=== PATIENT | male | born 1980 | race Caucasian/White ===

== ENCOUNTER 2017-07-23 21:58 | Inpatient (IN) | payer OTHER ==
[2017-07-23 22:50] LABS: #Eosinphils 0.2 thou/uL (0.0-0.7); #Lymphocytes 1.1 thou/uL (1.20-3.40); #Monocytes 0.5 thou/uL (0.11-0.59); #Neutrophils 7.1 thou/uL (1.40-6.50); %Basophils 0.2 % (0.0-1.0); %Lymphocytes 12.5 % (21.0-51.0); %Monocytes 5.6 % (0.0-10.0); Hematocrit 45.3 % (42.0-52.0); Mean Platelet Volume 8.5 fL (7.4-10.4); Red Blood Cell (RBC) Count 4.73 mill/uL (4.70-6.10); White Blood Cell (WBC) Count 8.9 thou/uL (4.8-10.8)
--- NOTE | 2017-07-23 23:07 | RAD ---
AP VIEW OF THE CHEST: 07/23/17 INDICATION: History of cough and rash on the neck and abdomen. COMPARISON: None. FINDINGS: No air space consolidation, pleural effusion is evident. The cardiomediastinal silhouette is within normal limits. No acute osseous abnormality is evident. IMPRESSION: No acute cardiopulmonary abnormality. POS: [facility]
[2017-07-23] MEDS ORDERED: Acetaminophen 500 MG TAB ONE (23:14)
[2017-07-23] MEDS ORDERED: cefTRIAXone\\ROCEPHIN 1 GM VIAL ONE (23:14)
[2017-07-23 23:40] LABS: Bilirubin Negative (Negative); Blood, Urine Negative (Negative); Glucose, Urine (Dipstick) Negative (Negative); Ketone, Urine Negative (Negative); Nitrite Negative (Negative); Protein, Urine (Dipstick) Negative (Neg-Trace); Urobilinogen 0.2 mg/dL (0.2-1.0)
[2017-07-23 23:41] LABS: ALT (SGPT) 22 U/L (8-55); AST (SGOT) 33 U/L (5-34); Alkaline Phosphatase 71 U/L (40-150); Anion Gap 18 mmol/L (10-20); BUN (Urea Nitrogen) 14 mg/dL (8.9-20.6); Bilirubin, Total 0.5 mg/dL (0.2-1.2); Calc. Creatinine Clearance 0 mL/min (70-130); Calcium 9.3 mg/dL (7.8-10.44); Carbon Dioxide 22 mmol/L (22-29); Chloride 103 mmol/L (98-107); Estimated GFR-MDRD 90; Globulin 3.4 g/dL (2.4-3.5); Magnesium 2.5 mg/dL (1.6-2.6); Protein, Total 7.7 g/dL (6.0-8.3)
[2017-07-23 23:41] LABS: Lactic Acid - Sepsis 3.2 mmol/L (0.5-2.2)
[2017-07-24] MEDS ORDERED: diphenhydrAMINE HCl 25 MG CAP PO PRN (09:55)
[2017-07-24] MEDS ORDERED: Enoxaparin Sodium 40 MG/0.4 ML SYRINGE SC SCH ×2 (09:55→10:30)
[2017-07-24] MEDS ORDERED: guaiFENesin ER 600 MG TAB PO SCH ×2 (09:55→10:30)
[2017-07-24] MEDS ORDERED: Ondansetron ODT 4 MG TAB PO PRN (09:55)
[2017-07-24] MEDS: Fluticasone Propionate Nasal Spray 16 gm Bottle NASAL SCH (10:00)
[2017-07-24 10:13] VITALS: BMI 29.8
[2017-07-24] MEDS ORDERED: Loratadine 10 MG TAB PO SCH (10:15)
[2017-07-24] MEDS: Sodium Chloride 0.9% 1,000 ML IV SCH ×2 (11:06→20:09)
[2017-07-24] MEDS: Acetaminophen 325 MG TAB PO PRN ×3 (12:19→21:53)
[2017-07-24] MEDS: Vancomycin HCl 1.5 GM in Sodium Chloride 0.9% 250 ML 300 ML IVPB SCH ×2 (12:19→23:28)
[2017-07-24 12:49] LABS: Amphetamine Not Detected (NotDetected); Methadone Not Detected (NotDetected); Methamphetamine Not Detected (NotDetected)
--- NOTE | 2017-07-24 14:26 | HP-2 ---
CODE STATUS: FULL. ATTENDING: Dr. Melendrez. RESIDENT: Lázaro Beverly M.D. HISTORIAN: The patient. CHIEF COMPLAINT: Fever and a rash. HISTORY OF PRESENT ILLNESS: Mr. Figueroa Rodriguez is a 37-year-old male with no prior past medical histor y who presents with 2-day history of rash on neck and abdomen for the last 2 days with associated fe jose and chills. He has been an inmate at the [facility] for 1 week. He states his fever was as high as 1 01.6. He states that he has also had nasal congestion, sore throat for the last 3 days. He admits to IV drug use in the past, stating the last time he used IV drugs was 11 months ago. He also admit s to a recent meth use 1 week ago. He prefers to smoke or eat the meth he says. He denies chest pa in, palpitations, edema, shortness of breath. PAST MEDICAL HISTORY: Depression. PAST SURGICAL HISTORY: Right knee surgery, testicular torsion. ALLERGIES: No known drug allergies. MEDICATIONS: None. FAMILY HISTORY: Noncontributory. SOCIAL HISTORY: Denies tobacco or alcohol use. Admits to using meth 1 week ago. REVIEW OF SYSTEMS: General: Positive for fever, night sweats and fatigue. Denies weight change, a ppetite or sleep changes. Eyes: Denies vision changes or eye pain. ENT: Positive for nasal conge stion, rhinorrhea, or sore throat. Respiratory: Positive for cough, congestion. Denies shortness of breath or exercise intolerance. Cardiovascular: Denies chest pain, palpitations, edema, PND, or thopnea. Gastrointestinal: Positive for nausea. Denies vomiting, diarrhea, constipation, abdomina l pain, GI bleeding. Genitourinary: Negative for incontinence, dysuria, polyuria, discharge. Skin : Positive for rash. Denies lesions, jaundice, itching. Musculoskeletal: Denies pain, tenderness, stiffness, swelling or arthritis. Neurologic: Denies we akness, numbness, syncope, seizures. Psychiatric: Denies anxiety or depression. PHYSICAL EXAMINATION: VITAL SIGNS: Blood pressure 116/75, pulse 76, respiratory rate 16, T-max 98.5, pulse ox 99 on room air. GENERAL: The patient is alert and oriented x4, no acute distress, obese, and appropriately interact [place]. HEENT: Eyes: Pupils equal, round, reactive to light and accommodation. Extraocular muscles intact . Conjunctivae within normal limits. Tympanic membranes pearly king without bulging or erythema. Nasal mucosa and oropharynx within normal limits. NECK: Supple, without lymphadenopathy or thyromegaly. CARDIOVASCULAR: Regular rate and rhythm. No murmurs or gallops. Radial and pedal pulses equal anne aterally. RESPIRATORY: Normal effort, no retractions. Lungs clear to auscultation bilaterally. SKIN: Warm and dry without cyanosis; however, there is erythema to the left neck and lower abdomen. ABDOMEN: Soft, nontender. Bowel sounds normoactive x4. No masses or distention. EXTREMITIES: No clubbing, cyanosis or edema. MUSCULOSKELETAL: Structure and tone within normal limits. Muscular strength 5/5 and full range of motion. NEUROLOGICAL: No focal deficits. Sensation within normal limits. Cranial nerves II through XII gr ossly intact. PSYCHIATRIC: Appropriate. LABORATORY DATA AND X-RAY FINDINGS: White blood cell count 8.9, hemoglobin 15.3, hematocrit 45.3, p latelets 245, MCV 95.5. Sodium 138, potassium 5.0, chloride 102, bicarbonate 22, BUN 14, creatinine 0.94, glucose 89, calcium 9.3, total protein 7.7, albumin 4.3, total bilirubin 0.5, AST 33, ALT 22, alkaline phosphatase 71. Influenza A and B negative. Magnesium 2.5. A strep swab is negative. R apid Strep screen negative. Lactic acid 3.2. UA is negative. Chest x-ray, no acute cardiopulmonar y abnormalities. ASSESSMENT AND PLAN: A 37-year-old male with past medical history of IV drug use who presents with fever, rash and upper respiratory symptoms. 1. Systemic inflammatory response syndrome, with unknown source and history of drug use and incarce ration. Check urine and blood cultures. Repeat CBC, BMP, lactic acid. Check UDS, RPR, HIV and hep atitis C. Start IV vancomycin and Rocephin for empiric coverage. Possible that the patient has a v iral URI contributing to symptoms with a viral exanthem explaining the rash. 2. Rash, possibly viral exanthem. Patient states it is a little bit itchy, p.r.n. Benadryl for the itchiness. 3. Upper respiratory infection, viral. Mucinex, Tylenol and Fluticasone. 4. Polysubstance abuse. Check UDS. Advised cessation. 5. Diet: Regular. 6. Deep venous thrombosis prophylaxis. Lovenox. 7. Activity: Ad hue. 8. Code status: full. Disposition and length of hospital stay: 1-2 days. Symptomatic medications will be provided. History and physical exam as well as management discussed with Dr. Melendrez.
[2017-07-24] MEDS ORDERED: cefTRIAXone\\ROCEPHIN 1 GM in Sodium Chloride 0.9% 100 ML IVPB SCH (20:00)
[2017-07-24] MEDS: guaiFENesin ER 600 MG TAB PO SCH (20:10)
--- NOTE | 2017-07-24 23:42 | ADD-HP ---
ADDENDUM: Please see the history and physical done by the resident for which I concur. HISTORY OF PRESENT ILLNESS: This 37-year-old incarcerated gentleman does have history of IV drug ab use in the past who came in with high fever and high lactic acid level and so the ER physician was w orried about the possibility of bacterial endocarditis, so is being admitted and has already been st arted on vancomycin and Rocephin for that. Little bit of rash, respiratory symptoms, stuffy nose, d rainage, postnasal drip, sore throat. Past medical history, social history, surgical history all per the resident's history and physical f or which I concur. PHYSICAL EXAMINATION: GENERAL: No apparent distress. VITAL SIGNS: Currently, afebrile. Vital signs are stable. ENT: Throat, slightly pink. Nares, thin congestion. NECK: No lymphadenopathy or thyromegaly. CHEST: Clear. CARDIAC: Regular rate and rhythm without any murmurs that I can hear. ABDOMEN: Soft, nontender, nondistended. EXTREMITIES: Show no edema. SKIN: Rash looks more like a viral exanthem of his trunk. Strep test and flu tests were negative. White count not particularly elevated. ASSESSMENT: Likely viral exanthem and viral upper respiratory tract infection but with history of I V drug abuse and high lactic acid level. PLAN: To admit, go ahead and keep him on the vancomycin and Rocephin until we get full cultures garrick k in 48 hours, then will likely discharge.
[2017-07-25] MEDS: Sodium Chloride 0.9% 1,000 ML IV SCH ×3 (01:30→18:09)
[2017-07-25] MEDS: Acetaminophen 325 MG TAB PO PRN (05:35)
[2017-07-25 05:47] LABS: #Basophils 0.1 thou/uL (0.0-0.2); #Eosinphils 0.3 thou/uL (0.0-0.7); #Lymphocytes 1.6 thou/uL (1.20-3.40); #Monocytes 0.7 thou/uL (0.11-0.59); #Neutrophils 5.3 thou/uL (1.40-6.50); %Basophils 0.7 % (0.0-1.0); %Eosinophils 3.2 % (0.0-10.0); %Lymphocytes 20.5 % (21.0-51.0); %Monocytes 8.9 % (0.0-10.0); Hematocrit 44.3 % (42.0-52.0); Red Blood Cell (RBC) Count 4.56 mill/uL (4.70-6.10); White Blood Cell (WBC) Count 7.9 thou/uL (4.8-10.8)
[2017-07-25 05:58] LABS: Anion Gap 12 mmol/L (10-20); BUN (Urea Nitrogen) 10 mg/dL (8.9-20.6); Calc. Creatinine Clearance 150 mL/min (70-130); Calcium 8.9 mg/dL (7.8-10.44); Carbon Dioxide 25 mmol/L (22-29); Chloride 105 mmol/L (98-107); Estimated GFR-MDRD Greater than 90
--- NOTE | 2017-07-25 06:57 | PDOC.FM ---
- Subjective Subjective: Patient had a fever overnight. He reports that he did not sleep well and he did not want to talk to me this morning. His rash is unchanged - Objective MAR Reviewed: Yes Vital Signs & Weight: Vital Signs (12 hours) Temp Pulse Resp BP Pulse Ox 07/25/17 04:00 99.4 F 77 20 122/66 96 07/25/17 00:00 100.2 F H 81 20 132/66 97 07/24/17 20:00 100.5 F H 94 20 130/63 97 Weight Weight 97.658 kg I&O: 07/23/17 07/24/17 07/25/17 06:59 06:59 06:59 Intake Total 4420 Output Total 3450 Balance 970 Result Diagrams: 07/25/17 05:05 07/25/17 05:05 Phys Exam - Physical Examination Constitutional: NAD HEENT: moist MMs, oral pharynx no lesions Respiratory: no wheezing, no rales, no rhonchi, clear to auscultation bilateral Cardiovascular: RRR, no significant murmur, no rub, gallop Gastrointestinal: soft, non-tender, no distention Musculoskeletal: no edema, pulses present Neurological: non-focal, moves all 4 limbs Psychiatric: normal affect, A&O x 3 Deviation from normal: erythematous rash on L side of abdomen, L side of neck, and L upper arm Dx/Plan (1) Suspected endocarditis Code(s): Z03.89 - ENCNTR FOR OBS FOR OTH SUSPECTED DISEASES AND COND RULED OUT Status: Acute Plan: This is a 37 year old male who presented with a rash and SIRS criteria as well as elevated lactic acid and has a history of IV drug use. Will rule out endocarditis -Blood cultures x2 -Echo -Vanc day 2 -Rocephin day 2 (2) Sepsis Code(s): A41.9 - SEPSIS, UNSPECIFIED ORGANISM Status: Acute Qualifiers: Sepsis type: sepsis due to unspecified organism Qualified Code(s): A41.9 - Sepsis, unspecified organism Plan: Patient met SIRS criteria and had an elevated lactic acid on admission, but the source is still unknown This is likely viral in etiology, but as the patient has a history of IV drug use and lives in prison we will wait until blood cultures are negative at 48 hours. -Blood cultures -Urine cultures -Vanc day 2 -Rocephin day 2 (3) Elevated lactic acid level Code(s): R79.89 - OTHER SPECIFIED ABNORMAL FINDINGS OF BLOOD CHEMISTRY Status : Resolved Plan: Elevated lactic acid in the setting of SIRS criteria, went down on repeat s/p fluid resuscitation (4) History of intravenous drug use in remission Code(s): Z87.898 - PERSONAL HISTORY OF OTHER SPECIFIED CONDITIONS Status: Acute Plan: Patient admits to a history of IV drug use in the past 12 months. He reports that he always uses clean needles. Will rule out bacteremia with negative blood cultures at 48 hours -Blood cultures
[2017-07-25] MEDS: Fluticasone Propionate Nasal Spray 16 gm Bottle NASAL SCH (08:25)
[2017-07-25] MEDS: guaiFENesin ER 600 MG TAB PO SCH (08:25)
[2017-07-25] MEDS ORDERED: Enoxaparin Sodium 40 MG/0.4 ML SYRINGE SC SCH (09:00)
[2017-07-25] MEDS ORDERED: Loratadine 10 MG TAB PO SCH (09:00)
[2017-07-25 11:49] LABS: Vancomycin, Trough 9.5 ug/mL
[2017-07-25] MEDS ORDERED: Vancomycin HCl 1.75 GM in Sodium Chloride 0.9% 500 ML IVPB SCH (12:00)
[2017-07-25] MEDS: Vancomycin HCl 1.5 GM in Sodium Chloride 0.9% 250 ML 300 ML IVPB SCH (12:25)
[2017-07-25 16:57] VITALS: BP 128/71; TEMP 99
--- NOTE | 2017-07-25 17:03 | ADD-PRG ---
ADDENDUM DATE OF SERVICE: 07/25/2017 Please see the note from Dr. Maldonado for which I concur. SUBJECTIVE: The patient is seen, evaluated and examined and discussed with the residents by bedside . Basically, no major change overnight on him. He is still having some fever, rashes. The lactic acid level came back normal. White count has not been elevated at all on him. He basically is here for a 48-hour blood culture to rule out something like sepsis or bacterial endocarditis, because of history of IV drug abuse with fever and rash, although everything really seems more like a viral ex anthem, but because we have kind of committed to this possibility, we are going to go and finish the full 48-hour rule out, which should be done tomorrow. PHYSICAL EXAMINATION: GENERAL: Exam has really unchanged. HEENT: Throat, slightly red, but no exudate. CHEST: Clear. CARDIOVASCULAR: Regular rate and rhythm. SKIN: Does have a fine maculopapular rash throughout the trunk and extremites. PLAN: Continue vancomycin and Rocephin and as long as the 48 hour culture is negative overnight, he will be able to go home tomorrow.
--- NOTE | 2017-07-26 13:14 | DIS-2 ---
DATE OF ADMISSION: 07/24/2017 DATE OF DISCHARGE: 07/25/2017 RESIDENT: Ruby Maldonado M.D. ADMITTING ATTENDING: Dr. Nathan Melendrez DISCHARGE ATTENDING: Dr. Nathan Melendrez CONSULTS: None. PROCEDURES: None. PRIMARY DIAGNOSIS: 1. Sepsis, secondary to viral upper respiratory infection. 2. History of IV drug use. 3. Viral exanthem. 4. Elevated lactic acid. DISCHARGE MEDICATIONS: 1. Claritin 10 mg p.o. daily. 2. Benadryl 25 mg p.o. q.6 h. p.r.n. itching. DISCONTINUED MEDICATIONS: None. HOSPITAL COURSE: This is a 37-year-old man who presented from detention with a history of IV drug use, c omplaining of a rash on his neck, abdomen, and left upper arm that has been going on for about 2 day s. He also has been having fever as well as a sore throat and nasal congestion. The patient admits to having used IV drugs about 11 months ago, admits to using meth about a week ago. The patient re ported that the rash was itchy, but had gotten slightly better. The patient's lab work was all with in normal limits except the lactic acid of 3.2, it later went down to 2 after fluid resuscitation. The patient had group A strep culture that was negative and influenza negative. His urine culture a nd blood cultures were no growth at 48 hours. He had a chest x-ray that showed no acute cardiopulmo nary abnormality. We did an echo that showed ejection fraction 50-55%, grade I diastolic dysfunctio n, mild mitral regurgitation, mild tricuspid regurgitation. The patient symptomatically improved an d temperatures had improved. This was likely viral in nature. We treated him with 48 hours of IV v ancomycin and Rocephin, but as blood cultures came back negative at 48 hours, likely viral and so we discharged the patient. DISPOSITION: Stable. DISCHARGE INSTRUCTIONS: 1. Location: Group Home. 2. Diet: Regular. 3. Activity: No restrictions. 4. Followup: Follow up with PCP within 5-7 days.
== END 2017-07-25 19:41 | DRG 872 ==
LOC: ERS 21:58 → ERHOLD 07-24 02:35 → 2NO 07-24 09:55
PROVIDERS: ADMIT Family Medicine; ATTEND Family Medicine
DX: A41.89 Other specified sepsis (principal); E87.2 Acidosis; J06.9 Acute upper respiratory infection, unspecified; F19.10 Other psychoactive substance abuse, uncomplicated; I08.1 Rheumatic disorders of both mitral and tricuspid valves; R21 Rash and other nonspecific skin eruption; R65.20 Severe sepsis without septic shock
CPT/HCPCS: 36415; 71010; 80048; 80053; 80202; 80306; 81003; 83605; 83735; 85025; 86780; 86803; 87040; 87081; 87086; 87389; 87430; 93306; 96360; 96361; 96365; 96367; J0696; J1650; J3370; J7050

== ENCOUNTER 2018-12-26 16:39 | Emergency (ER) | payer OTHER ==
[2018-12-26] MEDS ORDERED: Lidocaine 1% w/Epinephrine 1:100K 20 ML VIAL ONE (16:45)
[2018-12-26] MEDS ORDERED: Adacel (T-DAP) 0.5 ML SYRINGE ONE (17:07)
[2018-12-26] MEDS ORDERED: Bacitracin Zinc 1 Packet ONE (17:49)
--- NOTE | 2018-12-26 17:52 | RAD ---
LEFT KNEE FOUR VIEWS: History: Laceration to knee. FINDINGS: There are no signs of fracture, dislocation, or soft tissue swelling. No joint effusion is identified . No radiopaque foreign bodies. IMPRESSION: No acute changes. POS: [facility]
== END 2018-12-26 18:02 | disposition home or self-care (01) ==
LOC: SCSER 16:39
DX: S81.012A Laceration without foreign body, left knee, initial encounter (principal); F32.9 Major depressive disorder, single episode, unspecified; Z23 Encounter for immunization; Z79.899 Other long term (current) drug therapy; W29.3XXA Contact with powered garden and outdoor hand tools and machinery, initial encounter
CPT/HCPCS: 12002; 90471; 90715; J2001

== ENCOUNTER 2020-05-06 14:44 | Emergency (ER) | payer OTHER, SELFPAY ==
[2020-05-06] MEDS ORDERED: Ketorolac Tromethamine 30 MG/ML VIAL ONE (15:59)
[2020-05-06 16:22] LABS: ALT (SGPT) 12 U/L (8-55); AST (SGOT) 27 U/L (5-34); Albumin 3.8 g/dL (3.5-5.0); Alkaline Phosphatase 40 U/L (40-110); Anion Gap 16 mmol/L (10-20); BUN (Urea Nitrogen) 13 mg/dL (8.9-20.6); Bilirubin, Total 0.5 mg/dL (0.2-1.2); Calc. Creatinine Clearance 0 mL/min (70-130); Calcium 8.3 mg/dL (7.8-10.44); Carbon Dioxide 23 mmol/L (22-29); Chloride 99 mmol/L (98-107); Estimated GFR-MDRD 78; Globulin 3.5 g/dL (2.4-3.5); Glucose 96 mg/dL (70-105); Potassium 3.6 mmol/L (3.5-5.1); Protein, Total 7.3 g/dL (6.0-8.3); Sodium 134 mmol/L (136-145)
--- NOTE | 2020-05-06 16:25 | RAD ---
RADIOGRAPH CHEST 1 VIEW: DATE: 05/06/2020 TIME: 3:31 PM HISTORY: 40-year-old male with chest pain and dyspnea with chills and fever COMPARISON: 07/23/2017 FINDINGS: New finding of faint patchy infiltrates at right lower lung zone. Probable small faint patchy infiltrate at left mid-lower lung zone, also new. Probable small faint patchy infiltrate at lateral aspect of right upper lung zone, also new. Lateral costophrenic angles are not effaced. Cardiac mediastinal silhouette is normal. No pneumothora x or pulmonary edema. IMPRESSION: Multifocal faint small infiltrates: Evidence for pneumonia, possibly viral pneumonia such as COVID-19 .
[2020-05-06 16:49] LABS: #Lymphocytes 1.2 thou/uL (1.20-3.40); #Monocytes 0.2 thou/uL (0.11-0.59); #Neutrophils 5.2 thou/uL (1.40-6.50); %Basophils 0.2 % (0.0-1.0); %Eosinophils 0.2 % (0.0-10.0); %Lymphocytes 18.4 % (21.0-51.0); %Monocytes 3.4 % (0.0-10.0); %Neutrophils 77.8 % (42.0-75.0); Hemoglobin 13.9 g/dL (14.0-18.0); Mean Corpuscular HGB CONC 33.9 g/dL (32.0-36.0); Mean Corpuscular Hemoglobin 31.2 pg (27.0-31.0); Mean Corpuscular Volume 92.2 fL (78.0-98.0); Mean Platelet Volume 8.2 fL (7.4-10.4); Platelet Count 217 thou/uL (130-400); RBC Distribution Width 11.2 % (11.5-14.5); Red Blood Cell (RBC) Count 4.43 mill/uL (4.70-6.10); White Blood Cell (WBC) Count 6.6 thou/uL (4.8-10.8)
[2020-05-07 14:51] LABS: SARS-CoV-2 MS2 Positive; SARS-CoV-2 N Gene Positive; SARS-CoV-2 S Gene Positive; SARS-CoV-2 orf1ab Positive
== END 2020-05-06 20:39 ==
LOC: ERS 14:44
DX: U07.1 COVID-19 (principal); R07.89 Other chest pain; F32.9 Major depressive disorder, single episode, unspecified
CPT/HCPCS: 36415; 71045; 80053; 85025; 87635; 93005; 96361; 96374; J1885; U0003

== ENCOUNTER 2022-11-23 09:48 | Observation (INO) | payer OTHER ==
[2022-11-23] MEDS ORDERED: Fentanyl 100 MCG/2 ML VIAL ONE ×2 (09:53→17:22)
[2022-11-23] MEDS ORDERED: Lidocaine 1% PF 5 ML VIAL ONE ×3 (09:57→12:34)
[2022-11-23] MEDS ORDERED: Bupivacaine 0.25% 10 ML VIAL ONE ×2 (09:57)
[2022-11-23] MEDS ORDERED: Boostrix 0.5 ML (Tdap) VIAL (>/=7 yrs of age) ONE (10:09)
[2022-11-23] MEDS ORDERED: CEFAZOLIN 2 GM VIAL ONE (10:22)
[2022-11-23 10:37] LABS: #Eosinphils 0.4 thou/uL (0.0-0.7); #Lymphocytes 2.7 thou/uL (1.20-3.40); #Monocytes 0.3 thou/uL (0.11-0.59); %Basophils 0.7 % (0.0-1.0); %Eosinophils 6.4 % (0.0-10.0); %Monocytes 3.9 % (0.0-10.0); Hemoglobin 14.1 g/dL (14.0-18.0); Mean Corpuscular HGB CONC 33.7 g/dL (32.0-36.0); Mean Corpuscular Hemoglobin 33.3 pg (27.0-31.0); Mean Corpuscular Volume 98.9 fl (78.0-98.0); Mean Platelet Volume 8.2 fL (7.4-10.4); Platelet Count 272 10x3/uL (130-400); Red Blood Cell (RBC) Count 4.23 mill/uL (4.70-6.10); White Blood Cell (WBC) Count 6.5 10x3/uL (4.8-10.8)
[2022-11-23 10:51] LABS: PTT 26.1 sec (22.9-36.1)
[2022-11-23 11:06] LABS: ALT (SGPT) 17 U/L (8-55); AST (SGOT) 26 U/L (5-34); Albumin 4.3 g/dL (3.5-5.0); Alkaline Phosphatase 70 U/L (40-110); Anion Gap 16 mmol/L (10-20); BUN (Urea Nitrogen) 12 mg/dL (8.9-20.6); Bilirubin, Total 0.5 mg/dL (0.2-1.2); Calc. Creatinine Clearance 0 mL/min (70-130); Calcium 9.4 mg/dL (7.8-10.44); Carbon Dioxide 22 mmol/L (22-29); Chloride 106 mmol/L (98-107); Estimated GFR 68; Glucose 88 mg/dL (70-105); Potassium 4.8 mmol/L (3.5-5.1); Protein, Total 7.3 g/dL (6.0-8.3); Sodium 139 mmol/L (136-145)
[2022-11-23] MEDS ORDERED: Bacitracin Zinc Ointment 30 gm TUBE ONE (11:34)
[2022-11-23] MEDS ORDERED: Thrombin 5000 UNITS/5 ML VIAL ONE (11:34)
[2022-11-23] MEDS ORDERED: Bupivacaine PF 0.5% 30 ML VIAL ONE (11:34)
[2022-11-23] MEDS ORDERED: Neomycin-Polymyxin 1 ML AMP ONE ×2 (11:34→13:12)
[2022-11-23] MEDS ORDERED: Gentamicin Sulfate 80 MG in Premix Bag 1 BAG IVPB SCH (11:45)
[2022-11-23] MEDS ORDERED: Fentanyl 250 MCG/5 ML VIAL ONE (12:16)
[2022-11-23] MEDS ORDERED: Midazolam HCl 2 mg/2 ml Vial ONE (12:20)
[2022-11-23] MEDS ORDERED: Dexamethasone 20 MG/5 ML VIAL ONE (12:34)
[2022-11-23] MEDS ORDERED: PROPOFOL 200 MG/20 ML VIAL ONE (12:34)
[2022-11-23] MEDS ORDERED: PHENYLEPHRINE-NS 100 MCG/ML 10 ML SYRINGE ONE (12:34)
[2022-11-23] MEDS ORDERED: Ketorolac Tromethamine 30 MG/ML VIAL ONE (12:34)
[2022-11-23] MEDS ORDERED: Ondansetron PF 4 MG/2 ML Vial ONE (12:34)
[2022-11-23] MEDS ORDERED: Ketorolac Tromethamine 30 MG/ML VIAL IVP PRN (12:47)
[2022-11-23] MEDS ORDERED: Meperidine HCl/PF 25 MG/ML VIAL IM PRN (12:47)
[2022-11-23] MEDS ORDERED: Fentanyl 100 MCG/2 ML VIAL SLOW IVP PRN (12:48)
[2022-11-23] MEDS ORDERED: TETANUS, DIPHTHERIA TOX,ADULT (TDVAX) 0.5 ML VIAL IM ONE (12:48)
[2022-11-23] MEDS ORDERED: ABX FS PRN (13:00)
[2022-11-23] MEDS ORDERED: Mineral Oil Sterile 10 ML VIAL ONE (14:26)
[2022-11-23] MEDS ORDERED: HYDROmorphone 2 MG/ML VIAL SLOW IVP PRN (15:12)
[2022-11-23] MEDS ORDERED: Promethazine HCl 25 MG/ML VIAL IM PRN (15:12)
[2022-11-23] MEDS ORDERED: Morphine Sulfate 2 MG/ML SYRINGE SLOW IVP PRN (15:12)
[2022-11-23] MEDS ORDERED: Meperidine HCl/PF 25 MG/ML VIAL SLOW IVP PRN (15:12)
[2022-11-23] MEDS ORDERED: Ondansetron HCl/PF 4 MG/2 ML Vial IVP PRN (15:12)
[2022-11-23] MEDS ORDERED: Pharmacy to Dose ABXS IVPB PRN (15:14)
[2022-11-23] MEDS ORDERED: HYDROmorphone 0.5 MG/0.5 ML SYRINGE ONE (19:23)
[2022-11-23] MEDS: Aspirin 81 mg Enteric Coated Tablet PO SCH (22:14)
[2022-11-23] MEDS ORDERED: Morphine 2 MG/ML VIAL ONE (22:20)
[2022-11-23] MEDS: Morphine 2 MG/ML VIAL SLOW IVP PRN (22:21)
[2022-11-23] MEDS ORDERED: Vancomycin 1 GM in Premix Bag 1 BAG IVPB SCH (22:30)
[2022-11-23] MEDS ORDERED: Vancomycin 1 GM/200 ML (FROZEN) BAG ONE (23:14)
[2022-11-24] MEDS ORDERED: Morphine 2 MG/ML VIAL ONE ×2 (00:07→05:38)
[2022-11-24] MEDS: Morphine 2 MG/ML VIAL SLOW IVP PRN ×2 (00:09→05:40)
[2022-11-24] MEDS ORDERED: Gentamicin Sulfate 80 MG in Premix Bag 1 BAG IVPB SCH (09:30)
[2022-11-24] MEDS ORDERED: HYDROcodone/Acetaminophen 5/325 mg Tablet PO PRN (09:46)
[2022-11-24] MEDS ORDERED: HYDROcodone/Acetaminophen 5/325 mg Tablet ONE (09:47)
[2022-11-24] MEDS: Aspirin 81 mg Enteric Coated Tablet PO SCH (09:59)
[2022-11-24 14:44] VITALS: BP 131/59; TEMP 98.1
== END 2022-11-24 12:40 | disposition home or self-care (01) ==
LOC: ERS 09:48 → SDC 10:40 → PACU-TCU 12:00
PROVIDERS: ADMIT Orthopaedic Surgery Hand Surgery; ATTEND Orthopaedic Surgery Hand Surgery
PROC: 0PBV0ZZ Excision of Left Finger Phalanx, Open Approach (ICD-10-PCS; principal; 2022-11-23)
PROC: 0HQQXZZ Repair Finger Nail, External Approach (ICD-10-PCS; 2022-11-23)
PROC: 0HQQXZZ Repair Finger Nail, External Approach (ICD-10-PCS; 2022-11-23)
PROC: 0HQQXZZ Repair Finger Nail, External Approach (ICD-10-PCS; 2022-11-23)
PROC: 0HRGX73 Replacement of Left Hand Skin with Autologous Tissue Substitute, Full Thickness, External Approach (ICD-10-PCS; 2022-11-23)
PROC: 0HRGX73 Replacement of Left Hand Skin with Autologous Tissue Substitute, Full Thickness, External Approach (ICD-10-PCS; 2022-11-23)
DX: S68.623A Partial traumatic transphalangeal amputation of left middle finger, initial encounter (principal); S67.193A Crushing injury of left middle finger, initial encounter; S68.625A Partial traumatic transphalangeal amputation of left ring finger, initial encounter; S67.195A Crushing injury of left ring finger, initial encounter; S68.627A Partial traumatic transphalangeal amputation of left little finger, initial encounter; S67.197A Crushing injury of left little finger, initial encounter; F15.11 Other stimulant abuse, in remission; W23.0XXA Caught, crushed, jammed, or pinched between moving objects, initial encounter; Y99.0 Civilian activity done for income or pay
CPT/HCPCS: 80053; 85025; 85610; 85730; 86850; 86900; 86901; 90715; 96374; 96375; 96376; G0378; G0390; J1100; J1170; J1580; J1885; J2250; J2272; J2405; J2704; J3010; J3370-JW; S0020

== ENCOUNTER 2024-05-30 20:28 | Emergency (ER) | payer OTHER, SELFPAY ==
[2024-05-30] MEDS ORDERED: Ketorolac Tromethamine 30 MG (1 mL) VIAL ONE (21:40)
[2024-05-30] MEDS ORDERED: cefTRIAXone (ROCEPHIN) 1 GM VIAL ONE (22:16)
[2024-05-30] MEDS ORDERED: Lidocaine 1% MPF 2 ML VIAL ONE (22:16)
[2024-05-30 23:26] LABS: Influenza A by NAA Not Detected (NotDetected); Influenza B by NAA Not Detected (NotDetected); SARS-CoV-2 NAA Rapid Test Not Detected (NotDetected)
== END 2024-05-30 22:55 | disposition home or self-care (01) ==
LOC: ERS 20:28
DX: J18.9 Pneumonia, unspecified organism (principal)
CPT/HCPCS: 71046; 96372; J0696; J1885